=== PATIENT | female | born 1965 | race Caucasian/White ===

== ENCOUNTER 2017-11-11 07:24 | Emergency (ER) | payer BC ==
--- NOTE | 2017-11-11 09:22 | RAD ---
INDICATION: Right flank pain COMPARISON: None TECHNIQUE: Noncontrast axial source images were acquired from the level hemidiaphragms to the symphysis pubis as part of CT imaging for renal stone. Lung bases: The lung bases are clear. Liver: There is moderate hepatomegaly. Noncontrast imaging shows no evidence of a hepatic mass or ductal dilatation. Gallbladder: There is calcified cholelithiasis. Spleen: The spleen is normal in size. The noncontrast CT appearance is normal. Pancreas: Noncontrast imaging shows no pancreatic mass or ductal dilitation. Adrenal glands: No masses are identified. Kidneys/Bladder: There is no definitive evidence of nephrolithiasis. There is a small calcification at the level the mid right ureter but this is believed to be vascular and represent a phlebolith in a gonadal vein. However, there is mild right-sided hydronephrosis and proximal right hydroureter with mild perinephric and periureteral stranding. The findings could be related to recent passage of a calculus although pyelonephritis could also have this appearance. Noncontrast imaging shows no evidence of a renal mass. The bladder is unremarkable. Adenopathy: There is no evidence of intraperitoneal or retroperitoneal adenopathy. Evaluation is limited without oral contrast. Fluid collections: There are no free or localized fluid collections. Vessels: The aorta and iliac vessels are normal in caliber. There are no significant atherosclerotic changes. The IVC appears normal Pelvic organs: There is hysterectomy. There is no adnexal mass GI tract: Evaluation of the bowel is limited without oral contrast. The stomach, small bowel, and lower GI tract appear grossly normal. There is moderate retained stool, however. There are no obstructive findings. The appendix is visualized and appears normal. Soft tissues: No soft tissue abnormalities of the extraperitoneal abdomen or pelvis are identified. Osseous structures: There are no acute osseous findings. IMPRESSION: 1. Cholelithiasis. 2. Mild right-sided hydronephrosis and proximal right hydroureter with mild perinephric and periureteral stranding. No definite calculus. Consider recent passage of a calculus versus right-sided pyelonephrosis in the appropriate setting 3. Hysterectomy 4. Hepatomegaly
[2017-11-11] MEDS ORDERED: cefTRIAXone VIAL(*) 1,000 MG VIAL IM ONE (09:34)
[2017-11-11] MEDS ORDERED: Lidocaine 1% INJ* 10 MG/ML 30 ML SDV INJ ONE (09:34)
[2017-11-11] MEDS ORDERED: Lidocaine 1% MPF* 2 ML VIAL INJ ONE (09:39)
[2017-11-11 09:58] VITALS: BP 152/91
--- NOTE | 2017-11-11 10:16 | UC ---
Jasbir Culver Jennifer, scribed for Ashley Keith DO on 11/11/17 at 0845 . Complaint Female HPI - HPI Summary HPI Summary: The patient is a 52 year old female who presents with right flank pain for one week after passing a kidney stone. She describes it as a throbbing pain rated at a 7/10 that worsens throughout the day. She complains of dysuria and itchiness when she urinates. The patient reports she hasnt felt the typical symptoms she usually does while passing a kidney stone but has still been feeling pain. She additionally complains of on-and-off chills and nausea. The patient denies fevers, vomiting, headache, rashes, ear ache, chest pain, and shortness of breath. She reports that her last kidney stone was about one year ago. - History Of Current Complaint Chief Complaint: UCGU Stated Complaint: BURNING AND FREQUENT URINATION Time Seen by Provider: 11/11/17 08:04 Hx Obtained From: Patient Onset/Duration: Sudden Onset, Lasting Weeks - one week, Still Present, Worse Since Timing: Constant Severity Initially: Moderate Severity Currently: Moderate Pain Intensity: 7 Pain Scale Used: 0-10 Numeric Associated Signs And Symptoms: Positive: Nausea. Negative: Fever, Vomiting(# Of Episodes =) Related Hx: Similar Episode/Dx as: - Kidney Stone - Allergies/Home Medications Allergies/Adverse Reactions: Allergies Allergy/AdvReac Type Severity Reaction Status Date / Time No Known Allergies Allergy Verified 01/30/16 10:16 PMH/Surg Hx/FS Hx/Imm Hx Previously Healthy: Yes - NEG: HTN, DM - Surgical History Surgical History: Yes Surgery Procedure, Year, and Place: hysterectomy 2013. - Family History Known Family History: Positive: Cardiac Disease - Father, Hypertension Family History: NON CONTRIBUTORY - Social History Alcohol Use: Rare Alcohol Amount: 3-4 times a week 1 drink Substance Use Type: None Smoking Status (MU): Never Smoked Tobacco - Immunization History Most Recent Influenza Vaccination: 2014 Most Recent Tetanus Shot: UTD Review of Systems Constitutional: Negative - Fever, Chills Skin: Negative - Rash ENT: Negative - Ear ache Respiratory: Negative - Shortness of breath Cardiovascular: Negative - Chest pain Gastrointestinal: Negative - Vomiting, Nausea Genitourinary: Dysuria, Vaginal/Penile Itching - When urinating Neurological: Negative - Headache All Other Systems Reviewed And Are Negative: Yes Physical Exam - Summary Physical Exam Summary: Appearance: Well-Appearing, No Pain Distress, Well-Nourished Eyes: conjunctiva clear, no discharge ENT: Hearing grossly normal, no muffled/hoarse voice. Neck: Normal, Supple Respiratory/Lung Sounds: Lungs clear, Normal breath sounds, No respiratory distress, No accessory muscle use Cardiovascular: RRR, No murmur Abdomen: Nontender, Soft, no guarding, not distended Bowel Sounds: Present Musculoskeletal: Right CVA tenderness, tender over suprapubic region Neurological: Alert, muscle tone normal Psychiatric:Normal, age appropriate behavior Skin: Normal, Warm, Dry, Normal color Triage Information Reviewed: Yes Vital Signs: Initial Vital Signs Temp 98.8 F 11/11/17 07:37 Pulse 82 11/11/17 07:37 Resp 17 11/11/17 07:37 BP 144/90 11/11/17 07:37 Pulse Ox 100 11/11/17 07:37 Vital Signs Reviewed: Yes Diagnostics - Laboratory Diagnostic Studies Completed/Ordered: CT Abd/Pel. Interpreted by a radiologist. IMPRESSION: 1. Cholelithiasis. 2. Mild right-sided hydronephrosis and proximal right hydroureter with mild perinephric and periureteral stranding. No definite calculus. Consider recent passage of a calculus versus right-sided pyelonephrosis in the appropriate setting 3. Hysterectomy 4. Hepatomegaly. Dr. Keith has reviewed this report. Complaint Female Dx - Course Course Of Treatment: CT Abd/Pel shows 1. Cholelithiasis. 2. Mild right-sided hydronephrosis and proximal right hydroureter with mild perinephric and periureteral stranding. No definite calculus. Consider recent passage of a calculus versus right-sided pyelonephrosis in the appropriate setting 3. Hysterectomy 4. Hepatomegaly. Patient will be discharged with prescription for Cipro and follow up from PCP. The patient is agreeable with this plan. Medications reviewed. High blood pressure noted. - Differential Dx/Diagnosis Provider Diagnoses: Elevated blood pressure without diagnosis of hypertension, pyelonephritis Discharge - Discharge Plan Condition: Stable Disposition: HOME Prescriptions: Ciprofloxacin HCl [Cipro] 500 mg PO BID #20 tab Patient Education Materials: Kidney Infection (ED) Referrals: Orvlile Shook MD [Medical Doctor] - Parvez Patricio MD [Primary Care Provider] - (follow up in 3-5 day) Additional Instructions: ROCEPHIN: You have been given an injection of an antibiotic called Rocephin ( ceftriaxone). Sometimes the injection must be combined with antibiotic pills. For some infections, such as an uncomplicated ear infection, Rocephin provides all the antibiotic that's needed. The antibiotic will be in your body for about two days. For serious infections, we usually repeat doses of Rocephin daily. Side effects are very unusual following a shot. Women may develop vaginal yeast infections, and babies can get yeast (thrush) in the mouth following the use of antibiotics. Contact your physician if you have symptoms with this medication. Allergy to this antibiotic can result in hives, wheezing, faintness, or itching. If symptoms of allergy occur, call the doctor at once. CIPROFLOXACIN: You have been given a new antibacterial agent, ciprofloxacin (Cipro). This medicine is not related to the penicillins, sulfas, cephalosporins, or tetracyclines. It is often given to patients who are allergic to these drugs. It has been chosen for you either because other drugs are not appropriate, or because of the nature of your problem. Cipro should not be taken with antacids, as these can decrease its effectiveness. It can be taken without regard to meals. CIPRO SHOULD NOT BE TAKEN BY CHILDREN, NURSING WOMEN, OR WOMEN. Although Cipro is usually well-tolerated, common side effects can include nausea and diarrhea. Contact your doctor if you experience any unusual symptoms while on this medication, such as joint pain or swelling, shortness of breath, wheezing, faintness, or hives. ANYTIME YOU TAKE AN ANTIBIOTIC, IT IS IMPORTANT TO REPLENISH THE BODY'S SUPPLY OF "GOOD BACTERIA." YOU CAN GET GOOD BACTERIA FROM HIGH QUALITY CULTURED FOODS SUCH LOCAL YOGURT, SOUR KRAUT, YULIA NIMESH, NATURALLY FERMENTED PICKLES AND PROBIOTIC DRINKS. YOU CAN ALSO GET GOOD BACTERIA FROM A PROBIOTIC SUPPLEMENT. PLEASE CALL DR SHOOK'S OFFICE FOR FOLLOW UP. ALSO, FOLLOW UP WITH YOUR PCP TO DISCUSS INCIDENTAL CT SCAN FINDINGS OF LARGE LIVER AND GALL BLADDER STONE. Your blood pressure was elevated at this visit. That does not mean you have hypertension, it is probably due to your current condition. Please follow up with your primary care provider. The documentation as recorded by the Jasbir alba Jennifer accurately reflects the service I personally performed and the decisions made by me, Ashley Keith DO.
== END 2017-11-11 10:18 | disposition home or self-care (01) ==
LOC: UCEAST 07:24
DX: N12 Tubulo-interstitial nephritis, not specified as acute or chronic (principal); R03.0 Elevated blood-pressure reading, without diagnosis of hypertension; Z87.442 Personal history of urinary calculi; K80.20 Calculus of gallbladder without cholecystitis without obstruction
CPT/HCPCS: 74176; 81003; 87086; 96372; 99212; G0463; J0696